=== PATIENT | female | born 1990 | race Caucasian/White ===

== ENCOUNTER → 2018-10-11 | Outpatient (CLI) | payer OTHER ==
[~2018-10-11] VITALS: Ht 149.9 cm; Wt 44.9 kg
== END | disposition home or self-care (01) ==
LOC: RAD 08:00 → CIR.AMB 10-19 10:23 → EDSTATUS 10-19 10:38 → SURH 10-19 10:41 → EDSTATUS 10-19 12:00
DX: D25.9 Leiomyoma of uterus, unspecified (principal); Z01.811 Encounter for preprocedural respiratory examination